=== PATIENT | female | born 1975 | race Caucasian/White ===

== ENCOUNTER → 2022-09-03 | Day surgery (SDC) | payer BC | END | disposition home or self-care (01) | LOC: BICULT 12:29 | PROVIDERS: ATTEND Family Medicine | PROC: 0H9T3ZX Drainage of Right Breast, Percutaneous Approach, Diagnostic (ICD-10-PCS; principal; 2022-09-03) | DX: D24.1 Benign neoplasm of right breast (principal); Z88.1 Allergy status to other antibiotic agents; Z91.048 Other nonmedicinal substance allergy status | CPT/HCPCS: 19083; 88305 ==